=== PATIENT | female | born 1990 | race Caucasian/White ===

== ENCOUNTER → 2018-01-11 | Outpatient (REF) | payer OTHER ==
[2018-01-11 11:34] LABS: FREE T4 0.87 NG/DL (0.76-1.46)
[2018-01-11 12:35] LABS: ESTIMATED AVERAGE GLUCOSE 103 MG/DL (60-110); HEMOGLOBIN A1c 5.2 %
== END ==
LOC: M LABNEURO 09:23
DX: E11.9 Type 2 diabetes mellitus without complications (principal); E07.9 Disorder of thyroid, unspecified

== ENCOUNTER → 2018-05-26 | Outpatient (CLI) | payer OTHER ==
[~2018-05-26] MED LIST: ISOVUE-370 76% 100ML VIAL (Q9967) As Ordered
== END ==
LOC: M RADPRO 12:43
DX: N97.9 Female infertility, unspecified (principal)
CPT/HCPCS: 58340

== ENCOUNTER → 2019-05-12 | Outpatient (CLI) | payer OTHER ==
[~2019-05-12] MED LIST changes: -ISOVUE-370 76% 100ML VIAL (Q9967) As Ordered; +PRENTAB55 PO
[2019-05-12 10:30] LABS: PROGESTERONE 0.7 NG/ML
== END ==
LOC: M LAB 09:07
PROVIDERS: ATTEND Obstetrics & Gynecology Reproductive Endocrinology
DX: E28.9 Ovarian dysfunction, unspecified (principal)

== ENCOUNTER → 2019-05-16 | Outpatient (CLI) | payer OTHER ==
[2019-05-16 10:29] LABS: ESTRADIOL 214.3 PG/ML; LUTEINIZING HORMONE 9.3 mIU/mL; PROGESTERONE 0.73 NG/ML
== END ==
LOC: M LAB 09:26
PROVIDERS: ATTEND Obstetrics & Gynecology Reproductive Endocrinology
DX: E28.9 Ovarian dysfunction, unspecified (principal)

== ENCOUNTER → 2019-06-01 | Outpatient (CLI) | payer OTHER ==
[2019-06-01 10:19] LABS: HCG, SERUM QUANTITATIVE < 1.0 MIU/ML
[2019-06-01 11:46] LABS: PROGESTERONE 2.67 NG/ML
== END ==
LOC: M LAB 09:06
PROVIDERS: ATTEND Obstetrics & Gynecology Reproductive Endocrinology
DX: E28.9 Ovarian dysfunction, unspecified (principal)

== ENCOUNTER → 2019-06-06 | Outpatient (CLI) | payer OTHER ==
[2019-06-06 10:35] LABS: HCG, SERUM QUANTITATIVE < 1.0 MIU/ML
[2019-06-06 10:36] LABS: LUTEINIZING HORMONE 4.9 mIU/mL; PROGESTERONE 0.65 NG/ML
[2019-06-06 10:37] LABS: ESTRADIOL 44.1 PG/ML; FOLLICLE STIMULATING HORMONE 6.2 mIU/mL
== END ==
LOC: M LAB 09:22
PROVIDERS: ATTEND Obstetrics & Gynecology Reproductive Endocrinology
DX: E28.9 Ovarian dysfunction, unspecified (principal)

== ENCOUNTER → 2019-06-14 | Outpatient (CLI) | payer OTHER ==
[2019-06-14 08:42] LABS: ESTRADIOL 90.6 PG/ML; LUTEINIZING HORMONE 7.5 mIU/mL; PROGESTERONE 0.21 NG/ML
== END ==
LOC: M LAB 07:40
PROVIDERS: ATTEND Obstetrics & Gynecology Reproductive Endocrinology
DX: E28.9 Ovarian dysfunction, unspecified (principal)

== ENCOUNTER → 2019-06-16 | Outpatient (CLI) | payer OTHER ==
[2019-06-16 09:56] LABS: ESTRADIOL 176.6 PG/ML; LUTEINIZING HORMONE 4.5 mIU/mL; PROGESTERONE 0.24 NG/ML
== END ==
LOC: M LAB 08:38
PROVIDERS: ATTEND Obstetrics & Gynecology Reproductive Endocrinology
DX: E28.9 Ovarian dysfunction, unspecified (principal)

== ENCOUNTER → 2019-06-23 | Outpatient (CLI) | payer OTHER ==
[2019-06-23 11:50] LABS: THYROID STIMULATING HORMONE 2.26 uIU/ML (0.358-3.740)
[2019-06-23 11:53] LABS: PROGESTERONE 15.9 NG/ML
== END ==
LOC: M LAB 10:29
PROVIDERS: ATTEND Obstetrics & Gynecology Reproductive Endocrinology
DX: E28.9 Ovarian dysfunction, unspecified (principal)

== ENCOUNTER → 2019-06-30 | Outpatient (CLI) | payer OTHER ==
[2019-06-30 10:41] LABS: PROGESTERONE 1.26 NG/ML
== END ==
LOC: M LAB 08:07
PROVIDERS: ATTEND Obstetrics & Gynecology Reproductive Endocrinology
DX: Z32.00 Encounter for pregnancy test, result unknown (principal)